=== PATIENT | female | born 1955 | race Caucasian/White ===

== ENCOUNTER 2020-11-07 14:09 | Emergency (ER) | payer OTHER, SELFPAY ==
[2020-11-07] MEDS ORDERED: Lidocaine 2% w/Epinephrine 1:200K 20 ML VIAL ONE (15:05)
== END 2020-11-07 15:55 | disposition home or self-care (01) ==
LOC: BURERS 14:09
DX: S61.411A Laceration without foreign body of right hand, initial encounter (principal); Z23 Encounter for immunization; W01.110A Fall on same level from slipping, tripping and stumbling with subsequent striking against sharp glass, initial encounter
CPT/HCPCS: 12002